=== PATIENT | female | born 1965 | race Caucasian/White ===

== ENCOUNTER 2018-05-12 20:06 | Emergency (ER) | payer BC ==
[~2018-05-12] VITALS: Ht 180.3 cm; Wt 60.9 kg
[2018-05-12 20:12] VITALS: BP 147/66; TEMP 98.9
[2018-05-12 22:10] VITALS: PULSE 50
== END 2018-05-12 22:10 | disposition home or self-care (01) ==
LOC: COL.ER 20:06
DX: M43.6 Torticollis (principal); Z90.710 Acquired absence of both cervix and uterus
CPT/HCPCS: J3010; Q9967